=== PATIENT | female | born 1985 | race Hispanic/Latino ===

== ENCOUNTER 2024-05-04 12:00 | Inpatient (IN) | payer OTHER ==
[~2024-05-04] VITALS: Ht 160 cm; Wt 114.8 kg
[~2024-05-04 12:00] MED LIST: LOSA1TAB37 PO; METO-408 PO; NORE1TAB34 PO
[2024-05-04 13:16] VITALS: BP 123/64; PULSE 76; RESP 18
[2024-05-04 13:20] LABS: BASOPHILS # (AUTO) 0.08 K/uL (0.00-0.20); BASOPHILS % (AUTO) 0.8 % (0.0-5.0); HEMATOCRIT 38.4 % (36-48); IMMATURE GRANULOCYTE ABSOLUTE 0.05 K/uL (0-1); LYMPHOCYTES # (AUTO) 2.8 K/uL (1.0-4.8); LYMPHOCYTES % (AUTO) 28.9 % (21.0-51.0); MEAN CORPUSCULAR HEMOGLOBIN 29.8 pg (27.0-33.0); MEAN CORPUSCULAR HGB CONC 34.4 g/dL (32.0-36.0); MEAN CORPUSCULAR VOLUME 86.7 fL (79-99); MONOCYTES # (AUTO) 0.8 K/uL (0.1-1.0); MONOCYTES % (AUTO) 8.2 % (3.0-13.0); NEUTROPHILS # (AUTO) 5.9 K/uL (1.8-7.7); NEUTROPHILS % (AUTO) 60.6 % (40.0-77.0); PLATELET COUNT (AUTO) 397 K/uL (130-400); RED BLOOD CELL COUNT(AUTO) 4.43 MIL/uL (4.00-5.50); RED CELL DISTRIBUTION WIDTH 12.6 % (11.0-15.5); WHITE BLOOD COUNT (AUTO) 9.7 K/uL (4.8-10.8)
[2024-05-04 13:36] LABS: ALBUMIN 4.1 g/dL (3.5-5.0); BILIRUBIN,TOTAL 0.6 mg/dL (0.2-1.0); CREATININE 0.6 mg/dL (0.5-1.0); TOTAL PROTEIN, SERUM 8.1 g/dL (6.0-8.3)
[2024-05-04] MEDS ORDERED: ERGO500093 PO (13:45)
[2024-05-06] VITALS (26 sets, daily range): BP systolic 104–156; BP diastolic 45–89; PULSE 74–90; RESP 15–18; O2SAT 99
[2024-05-06] MEDS: CEFAZOLIN SODIUM 2 GM VIAL ONE (10:46)
[2024-05-06] MEDS: LACTATED RINGERS 1000ML 1,000 ML IV ONE (10:47)
[2024-05-06] MEDS: METRONIDAZOLE 500MG/100ML BAG 200 ML ONE (10:57)
[2024-05-06] MEDS: POTASSIUM CHLORIDE 20MEQ/100ML 100 ML IV ONE (12:00)
[2024-05-06] MEDS: POTASSIUM CHLORIDE 10MEQ/100ML 100 ML IV SCH (12:00)
[2024-05-06] MEDS ORDERED: LIDOCAINE PF 100MG/5ML (2%) SYRINGE 5ML ONE (13:48)
[2024-05-06] MEDS ORDERED: ROCURONIUM BROMIDE 10MG/1ML 5ML VL ONE (13:48)
[2024-05-06] MEDS ORDERED: PROPOFOL 10 MG/ML 20ML VIAL IV ONE (13:48)
[2024-05-06] MEDS ORDERED: KETAMINE 50MG/ML SYRINGE 50 MG/ML DISP.SYRIN ONE (14:19)
[2024-05-06] MEDS: ACETAMINOPHEN 1,000 MG/100 ML VIAL IV ONE (14:20)
[2024-05-06] MEDS: FAMOTIDINE 20MG VIAL IV ONE (14:20)
[2024-05-06] MEDS: LACTATED RINGERS 1000ML 1,000 ML IV SCH (14:30)
[2024-05-06] MEDS ORDERED: DEXAMETHASONE SOD PHOSPHATE 10MG/ML 1ML VIAL ONE (14:34)
[2024-05-06] MEDS ORDERED: ONDANSETRON 4MG INJ ONE (14:35)
[2024-05-06] MEDS ORDERED: FENTANYL CITRATE PF 50 MCG/1 ML 2ML VIAL ONE (14:35)
[2024-05-06] MEDS: INDOCYANINE GREEN 25 MG VIAL IJ ONE (14:49)
[2024-05-06] MEDS ORDERED: BUPIVACAINE/PF 0.25% 30ML VIAL IJ ONE (14:50)
[2024-05-06] MEDS ORDERED: 0.9%NACL 10ML VIAL ONE (14:56)
[2024-05-06] MEDS ORDERED: PHENYLEPHRINE HCL 10 MG/ML 1ML VIAL IV ONE (14:56)
[2024-05-06] MEDS: SUGAMMADEX SODIUM 200 MG/2 ML VIAL IV ONE (16:17)
[2024-05-06] MEDS ORDERED: PROCHLORPERAZINE 10MG/2ML INJ IV PRN (16:30)
[2024-05-06] MEDS ORDERED: HYDROMORPHONE 1 MG INJ IVP PRN (16:30)
[2024-05-06] MEDS ORDERED: KETOROLAC 30MG VIAL (30MG/ML) IV PRN (16:30)
[2024-05-06] MEDS ORDERED: ONDANSETRON 4MG INJ IVP PRN (16:30)
[2024-05-06] MEDS ORDERED: ENOXAPARIN SODIUM 30 MG/0.3 ML SQ SCH (16:30)
[2024-05-06] MEDS ORDERED: HYDROCODONE/ACETAMINOPHEN 7.5/325 MG 15 ML UDCUP PO PRN (16:30)
[2024-05-06] MEDS: MEPERIDINE-PF 25 MG/ML SYG ONE (16:46)
[2024-05-06] MEDS: HYDROMORPHONE 0.5 MG SYG (0.5MG/0.5ML) IVP PRN (19:45)
[2024-05-06] MEDS ORDERED: KETOROLAC 15MG/ML VIAL (15MG/ML) IV PRN (20:00)
[2024-05-06] MEDS: FAMOTIDINE 20MG VIAL IV SCH (22:37)
[2024-05-06] MEDS: ENOXAPARIN SODIUM 40 MG/0.4 ML SYRINGE SQ SCH (22:39)
[2024-05-07] VITALS: BP 120/58; PULSE 79; RESP 17
[2024-05-07 04:00] VITALS: BP 124/68; PULSE 78; RESP 18
[2024-05-07 04:59] LABS: CREATININE 0.8 mg/dL (0.5-1.0); POTASSIUM 3.2 mmol/L (3.5-5.1)
[2024-05-07 08:00] VITALS: BP 112/59; PULSE 74; RESP 16
[2024-05-07 11:00] VITALS: O2SAT 99
[2024-05-07 12:00] VITALS: BP 109/65; PULSE 72; RESP 16
[2024-05-07 16:00] VITALS: BP 124/60; PULSE 71; RESP 16
[2024-05-07] MEDS ORDERED: METOPROLOL SUCCINATE 25 MG TAB.SR.24H PO SCH (21:00)
== END 2024-05-07 17:00 | disposition home or self-care (01) | DRG 621 ==
LOC: DAHIP 05-06 09:15 → 3DH 05-06 17:30
PROVIDERS: ADMIT Surgery; ATTEND Surgery
PROC: 0DJ08ZZ Inspection of Upper Intestinal Tract, Via Natural or Artificial Opening Endoscopic (ICD-10-PCS; 2024-05-06)
PROC: 8E0W4CZ Robotic Assisted Procedure of Trunk Region, Percutaneous Endoscopic Approach (ICD-10-PCS; 2024-05-06)
PROC: 0DB64Z3 Excision of Stomach, Percutaneous Endoscopic Approach, Vertical (ICD-10-PCS; principal; 2024-05-06 14:29)
DX: E66.01 Morbid (severe) obesity due to excess calories (principal); E87.6 Hypokalemia; I10 Essential (primary) hypertension; Z68.41 Body mass index [BMI] 40.0-44.9, adult
CPT/HCPCS: 36415; 43235; 80048; 80053; 84132; 84703; 85025; 86850; 86900; 86901; G0378; J1100; J1170; J1650; J2001; J2175; J2371; J2405; J2704; J3010; J3480; J3490; J7030; J7120; A4213; A4215; A4221; A4222; A4223; A4335; A4600; A4663; A4930; A6260; G0168; J0665; J0690